=== PATIENT | female | born 1945 | race Two or more races ===

== ENCOUNTER 2017-07-14 12:05 | Outpatient (CLI) | payer BC | END 2017-07-14 14:51 | disposition home or self-care (01) | LOC: MAMO-SONO 12:05 | DX: Z12.31 Encounter for screening mammogram for malignant neoplasm of breast (principal); I10 Essential (primary) hypertension; E03.8 Other specified hypothyroidism; E55.9 Vitamin D deficiency, unspecified; E11.51 Type 2 diabetes mellitus with diabetic peripheral angiopathy without gangrene; E11.9 Type 2 diabetes mellitus without complications; E78.9 Disorder of lipoprotein metabolism, unspecified ==

== ENCOUNTER 2017-12-25 03:14 | Emergency (ER) | payer OTHER ==
[~2017-12-25] VITALS: Ht 167.6 cm; Wt 99.8 kg
[2017-12-25] MEDS ORDERED: METFORMIN HCL500 MG (03:31)
[2017-12-25] MEDS ORDERED: KETO10TA2 PO (06:28)
[2017-12-25] MEDS ORDERED: ORPHENADRINE C100 MG PO (06:28)
== END 2017-12-25 06:42 | disposition home or self-care (01) ==
LOC: ER 03:14
DX: S20.212A Contusion of left front wall of thorax, initial encounter (principal); W18.39XA Other fall on same level, initial encounter; Y93.89 Activity, other specified; Y92.59 Other trade areas as the place of occurrence of the external cause; Y99.8 Other external cause status

== ENCOUNTER 2017-12-26 08:35 | Emergency (ER) | payer OTHER ==
[~2017-12-26] VITALS: Ht 154.9 cm; Wt 99.8 kg
[~2017-12-26 08:35] MED LIST: KETO10TA2 PO; METFORMIN HCL500 MG; ORPHENADRINE C100 MG PO
== END 2017-12-26 15:35 | disposition home or self-care (01) ==
LOC: ER 08:35
DX: S20.212A Contusion of left front wall of thorax, initial encounter (principal); S20.211A Contusion of right front wall of thorax, initial encounter; W18.39XA Other fall on same level, initial encounter; Y93.89 Activity, other specified; Y92.89 Other specified places as the place of occurrence of the external cause; Y99.8 Other external cause status

== ENCOUNTER 2018-12-27 14:54 | Outpatient (CLI) | payer OTHER | END 2018-12-27 16:49 | disposition home or self-care (01) | LOC: RAD 14:54 | DX: E03.8 Other specified hypothyroidism (principal); E66.01 Morbid (severe) obesity due to excess calories; E11.9 Type 2 diabetes mellitus without complications; E66.09 Other obesity due to excess calories; M94.0 Chondrocostal junction syndrome [Tietze]; E78.89 Other lipoprotein metabolism disorders; E11.51 Type 2 diabetes mellitus with diabetic peripheral angiopathy without gangrene; E55.9 Vitamin D deficiency, unspecified; N39.0 Urinary tract infection, site not specified ==

== ENCOUNTER 2019-01-16 14:39 | Outpatient (CLI) | payer OTHER | END 2019-01-16 14:42 | disposition home or self-care (01) | LOC: MAMO-SONO 14:39 | DX: Z12.31 Encounter for screening mammogram for malignant neoplasm of breast (principal); Z87.898 Personal history of other specified conditions; E66.01 Morbid (severe) obesity due to excess calories; E11.9 Type 2 diabetes mellitus without complications; E66.09 Other obesity due to excess calories; M94.0 Chondrocostal junction syndrome [Tietze]; E78.89 Other lipoprotein metabolism disorders; E03.8 Other specified hypothyroidism; E11.51 Type 2 diabetes mellitus with diabetic peripheral angiopathy without gangrene; E55.9 Vitamin D deficiency, unspecified; N39.0 Urinary tract infection, site not specified ==

== ENCOUNTER → 2019-03-28 | Emergency (ER) | payer OTHER ==
[~2019-03-28] VITALS: Ht 170.2 cm; Wt 97.5 kg
== END | disposition left against medical advice (07) ==
LOC: ER 22:08
DX: Z53.20 Procedure and treatment not carried out because of patient's decision for unspecified reasons (principal)

== ENCOUNTER 2019-11-05 14:48 | Outpatient (CLI) | payer OTHER | END 2019-11-05 14:57 | disposition home or self-care (01) | LOC: RAD 14:48 | PROVIDERS: ATTEND Internal Medicine | DX: E66.09 Other obesity due to excess calories (principal); M94.0 Chondrocostal junction syndrome [Tietze]; E78.89 Other lipoprotein metabolism disorders; E03.8 Other specified hypothyroidism; E11.51 Type 2 diabetes mellitus with diabetic peripheral angiopathy without gangrene; E55.9 Vitamin D deficiency, unspecified; N39.0 Urinary tract infection, site not specified ==

== ENCOUNTER 2019-11-20 13:36 | Outpatient (CLI) | payer OTHER | END 2019-11-20 13:38 | disposition home or self-care (01) | LOC: NUCLEAR 13:36 | PROVIDERS: ATTEND Obstetrics & Gynecology | DX: M81.0 Age-related osteoporosis without current pathological fracture (principal) ==

== ENCOUNTER 2021-06-09 14:06 | Inpatient (IN) | payer OTHER ==
[~2021-06-09] VITALS: Ht 167.6 cm; Wt 97.1 kg
[2021-06-09] MEDS ORDERED: CRESTOR10 MG PO (14:27)
[2021-06-09] MEDS ORDERED: VASOTEC5 MG PO (14:27)
[2021-06-12] MEDS ORDERED: CLOPIDOGREL BIS75 MG PO (07:01)
[2021-06-12] MEDS ORDERED: LIPITOR40 MG PO (07:01)
[2021-06-12] MEDS ORDERED: VASOTEC5 MG PO (07:01)
[2021-06-12] MEDS ORDERED: FAMOTIDINE20 MG PO (07:02)
[2021-06-12] MEDS ORDERED: TOPROL XL50 M1 PO (07:02)
[2021-06-12] MEDS ORDERED: METFORMIN HCL500 MG PO (07:03)
[2021-06-12] MEDS ORDERED: KETO10TA2 PO (07:03)
[2021-06-12] MEDS ORDERED: PLAVIX75 MG PO (07:04)
== END 2021-06-12 18:08 | disposition home or self-care (01) | DRG 65 ==
LOC: ER 14:06 → SEC-K 18:01 → MEDI 18:01
PROVIDERS: ADMIT Internal Medicine; ATTEND Internal Medicine
PROC: BW28ZZZ Computerized Tomography (CT Scan) of Head (ICD-10-PCS; principal; 2021-06-09)
PROC: 4A12X4Z Monitoring of Cardiac Electrical Activity, External Approach (ICD-10-PCS; 2021-06-09)
PROC: B24BZZZ Ultrasonography of Heart with Aorta (ICD-10-PCS; 2021-06-10)
PROC: BW38YZZ Magnetic Resonance Imaging (MRI) of Head using Other Contrast (ICD-10-PCS; 2021-06-11)
DX: I63.89 Other cerebral infarction (principal); G81.94 Hemiplegia, unspecified affecting left nondominant side; I69.393 Ataxia following cerebral infarction; S20.212A Contusion of left front wall of thorax, initial encounter; I10 Essential (primary) hypertension; E11.9 Type 2 diabetes mellitus without complications; Z79.4 Long term (current) use of insulin; Z20.822 Contact with and (suspected) exposure to COVID-19; E78.49 Other hyperlipidemia
CPT/HCPCS: 70545

== ENCOUNTER → 2022-03-23 | Outpatient (CLI) | payer OTHER ==
[~2022-03-23] MED LIST changes: +CLOPIDOGREL BIS75 MG PO; +CRESTOR10 MG PO; +FAMOTIDINE20 MG PO; +LIPITOR40 MG PO; +METFORMIN HCL500 MG PO; +PLAVIX75 MG PO; +TOPROL XL50 M1 PO; +VASOTEC5 MG PO
== END | disposition home or self-care (01) ==
LOC: MAMO-SONO 12:05
PROVIDERS: ATTEND Internal Medicine
DX: N63.11 Unspecified lump in the right breast, upper outer quadrant (principal); N63.12 Unspecified lump in the right breast, upper inner quadrant

== ENCOUNTER 2022-05-17 13:45 | Outpatient (CLI) | payer OTHER | END 2022-05-17 13:58 | disposition home or self-care (01) | LOC: RAD 13:45 | PROVIDERS: ATTEND Neuromusculoskeletal Medicine, Sports Medicine | DX: M19.011 Primary osteoarthritis, right shoulder (principal); M17.0 Bilateral primary osteoarthritis of knee ==

== ENCOUNTER 2022-12-06 13:22 | Outpatient (CLI) | payer OTHER | END 2022-12-06 13:38 | disposition home or self-care (01) | LOC: RAD 13:22 | DX: M54.40 Lumbago with sciatica, unspecified side (principal) ==